=== PATIENT | female | born 1965 | race American Indian/Alaskan Native ===

== ENCOUNTER 2016-08-11 01:58 | Emergency (ER) | payer MEDICARE ==
[2016-08-11] MEDS ORDERED: MOTRIN PO ONE (04:49)
--- NOTE | 2016-08-11 04:50 | Emergency Department Report ---
ED Extremity Problem HPI - General Chief complaint: Extremity Problem,Nontraumatic Stated complaint: R KNEE PAIN Time Seen by Provider: 08/11/16 04:44 Source: patient Mode of arrival: Ambulatory Limitations: No Limitations - History of Present Illness Initial comments: 50-year-old female with a 2 history of right knee pain comes in for worsening pain since she's been over using the knee. She denies any recent traumas. She has not tried any pain medicine at home. He reports that she was on tramadol in the past. But has run out. She does have a primary care provider. - Related Data Previous Rx's Medication Instructions Recorded Last Taken Type traMADol [Ultram 50 MG tab] 50 mg PO Q6HR PRN #40 tablet 08/11/16 Unknown Rx Allergies Allergy/AdvReac Type Severity Reaction Status Date / Time No Known Allergies Allergy Verified 08/11/16 02:03 ED Review of Systems ROS: Stated complaint: R KNEE PAIN Other details as noted in HPI Musculoskeletal: arthralgia (left knee ) ED Past Medical Hx - Past Medical History Previous Medical History?: Yes Additional medical history: R Knee Pain - Surgical History Past Surgical History?: Yes Additional Surgical History: Breast reduction 2009 - Social History Smoking Status: Current Some Day Smoker - Medications Home Medications: Home Medications Medication Instructions Recorded Confirmed Last Taken Type traMADol [Ultram 50 MG tab] 50 mg PO Q6HR PRN #40 tablet 08/11/16 Unknown Rx ED Physical Exam - General Limitations: No Limitations General appearance: alert, in no apparent distress - Expanded Lower Extremity Exam Left Knee exam: Present: normal inspection, full ROM, crepidus. Absent: tenderness, swelling, ecchymosis, deformity, dislocation, erythema, effusion, posterior draw sign, pain/laxity with valgus, pain/laxity with varus ED Course Vital Signs 08/11/16 02:04 Temperature 98.0 F Pulse Rate 75 Respiratory 16 Rate Blood Pressure 119/74 O2 Sat by Pulse 100 Oximetry ED Medical Decision Making - Medical Decision Making He has been evaluated by this provider fast track we will give patient ibuprofen 800 mg by mouth now. We will discharge patient on tramadol 50 mg 1 tablet by mouth QID a day dispense 40. Patient needs to follow with her primary care provider Critical care attestation.: If time is entered above; I have spent that time in minutes in the direct care of this critically ill patient, excluding procedure time. ED Disposition Clinical Impression: Knee pain, chronic Qualifiers: Laterality: left Qualified Code(s): M25.562 - Pain in left knee Disposition: DISCHARGED TO HOME OR SELFCARE Is pt being admited?: No Does the pt Need Aspirin: No Condition: Stable Additional Instructions: Very importantly to follow to primary care provider for further management of her chronic pain. Prescriptions: traMADol [Ultram 50 MG tab] 50 mg PO Q6HR PRN #40 tablet PRN Reason: Pain Referrals: HARINI SEVERINO MD [Primary Care Provider] - 3-5 Days
[2016-08-11 05:24] VITALS: BP 123/85
== END 2016-08-11 05:22 | disposition home or self-care (01) ==
LOC: ED 01:58
DX: M25.562 Pain in left knee (principal); G89.29 Other chronic pain; Z72.0 Tobacco use
CPT/HCPCS: 99282

== ENCOUNTER 2017-01-04 12:06 | Emergency (ER) | payer MEDICARE ==
[2017-01-04 12:18] VITALS: BP 110/55
[2017-01-04] MEDS ORDERED: NORCO 5/325 PO ONE (13:50)
--- NOTE | 2017-01-04 14:13 | Emergency Department Report ---
ED Extremity Problem HPI - General Chief complaint: Extremity Injury, Lower Stated complaint: RT KNEE PAIN Time Seen by Provider: 01/04/17 13:37 Source: patient Mode of arrival: Ambulatory Limitations: No Limitations - History of Present Illness Initial comments: PT c/o intermittent R knee pain x 1 year. PT states she has had a flare up of knee pain x 2-3 days. PT states 1 year ago she had LASHAY and she was told that she needed surgery. PT states she did not want knee surgery. PT states she has an appointment for a second opinion in a couple of weeks. PT states she could not wait that long. PT has not tried any OTC medication for pain. PT states her pain is worse when she walks and she walks everywhere. PT had ride to ED. MD Complaint: joint paint -: Gradual, days(s) Location: right, knee History of Same: Yes Severity scale (0 -10): 10 Quality: constant Consistency: constant Improves with: nothing Worsens with: weight bearing, walking, palpation Associated Symptoms: denies other symptoms - Related Data Previous Rx's Medication Instructions Recorded Last Taken Type Acetaminophen/Codeine [Tylenol #3] 1 tab PO Q6H PRN #7 tab 01/04/17 Unknown Rx Ibuprofen [Motrin] 600 mg PO Q8H PRN #15 tablet 01/04/17 Unknown Rx Allergies Allergy/AdvReac Type Severity Reaction Status Date / Time No Known Allergies Allergy Verified 08/11/16 02:03 ED Review of Systems ROS: Stated complaint: RT KNEE PAIN Other details as noted in HPI Comment: All other systems reviewed and negative Constitutional: denies: chills, fever Respiratory: denies: shortness of breath, SOB with exertion, SOB at rest Cardiovascular: denies: chest pain Gastrointestinal: denies: nausea, vomiting Musculoskeletal: joint swelling Skin: denies: rash, change in color ED Past Medical Hx - Past Medical History Hx Hypertension: Yes Hx Arthritis: Yes Additional medical history: R Knee Pain,elevated cholesterol - Surgical History Additional Surgical History: Breast reduction 2010,cataracts,polyp in rectum removed - Social History Smoking Status: Never Smoker Substance Use Type: None - Medications Home Medications: Home Medications Medication Instructions Recorded Confirmed Last Taken Type Acetaminophen/Codeine [Tylenol #3] 1 tab PO Q6H PRN #7 tab 01/04/17 Unknown Rx Ibuprofen [Motrin] 600 mg PO Q8H PRN #15 tablet 01/04/17 Unknown Rx ED Physical Exam - General Limitations: No Limitations General appearance: alert, in no apparent distress - Head Head exam: Present: atraumatic, normocephalic, normal inspection - Eye Eye exam: Present: normal appearance. Absent: conjunctival injection - ENT ENT exam: Present: normal exam, normal external ear exam - Neck Neck exam: Present: normal inspection, full ROM - Respiratory Respiratory exam: Present: normal lung sounds bilaterally. Absent: respiratory distress, chest wall tenderness - Cardiovascular Cardiovascular Exam: Present: regular rate, normal rhythm, normal heart sounds - GI/Abdominal GI/Abdominal exam: Present: soft. Absent: tenderness - Extremities Exam Extremities exam: Present: normal inspection, tenderness. Absent: full ROM, pedal edema, calf tenderness - Expanded Lower Extremity Exam Right Upper Leg exam: Present: normal inspection. Absent: tenderness Knee exam: Present: tenderness (medial joint line ), swelling, crepidus. Absent : ecchymosis, deformity, effusion, full knee extension Lower Leg exam: Present: normal inspection Ankle exam: Present: normal inspection. Absent: tenderness Neuro vascular tendon exam: Present: no vascular compromise. Absent: pulse deficit Gait: Positive: antalgic - Back Exam Back exam: Present: normal inspection, full ROM - Neurological Exam Neurological exam: Present: alert, oriented X3 - Psychiatric Psychiatric exam: Present: normal affect, normal mood - Skin Skin exam: Present: warm, dry, intact, normal color. Absent: rash, erythema ED Course Vital Signs 01/04/17 12:14 Temperature 99.1 F Pulse Rate 79 Respiratory 18 Rate Blood Pressure 110/55 O2 Sat by Pulse 100 Oximetry - Reevaluation(s) Reevaluation #1: 01/04/17 14:15 PT aware that her acute pain will be treated. PT aware she will need to follow up with [facility]. PT has no questions at this time. - Pulse Oximetry Interpretation Digit-Finger Initial Pulse Oximetry Readin Actions Taken: none ED Medical Decision Making - Differential Diagnosis strain, oa, chronic pain Critical Care Time: No Critical care attestation.: If time is entered above; I have spent that time in minutes in the direct care of this critically ill patient, excluding procedure time. ED Disposition Clinical Impression: Crepitus of joint of right knee Knee pain, chronic Qualifiers: Laterality: right Qualified Code(s): M25.561 - Pain in right knee Disposition: TO HOME OR SELFCARE Is pt being admited?: No Does the pt Need Aspirin: No Condition: Stable Instructions: Knee Sprain (ED), Knee Pain (ED), RICE Therapy (ED) Additional Instructions: No driving or ETOH if taking Tylenol #3 Prescriptions: Acetaminophen/Codeine [Tylenol #3] 1 tab PO Q6H PRN #7 tab PRN Reason: Pain , Severe (7-10) Ibuprofen [Motrin] 600 mg PO Q8H PRN #15 tablet PRN Reason: Pain Referrals: PRIMARY CARE, [Primary Care Provider] - 3-5 Days MICA PEREZ MD [Staff Physician] - 3-5 Days Time of Disposition: 14:18
== END 2017-01-04 14:25 | disposition home or self-care (01) ==
LOC: ED 12:06
DX: M23.8X1 Other internal derangements of right knee (principal); M25.561 Pain in right knee; M19.90 Unspecified osteoarthritis, unspecified site; E78.00 Pure hypercholesterolemia, unspecified
CPT/HCPCS: 99283